=== PATIENT | male | born 1945 | race Caucasian/White ===

== ENCOUNTER 2023-04-21 13:35 | Outpatient (AMB) | payer MEDICARE, SELFPAY ==
--- NOTE | 2023-04-21 13:40 | MHC.OFFVIS ---
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 The patient is a 77-year-old gentleman with a known history of asthma who presents with worsening respiratory symptoms. He has been complaining of worsening cough. The cough is typically nonproductive. Twmc-fu-uyzmygyr severity. He is tried multiple therapies iegy-slv-ucnwzvy without any significant improvement. Does state that he does have significant allergies and nasal congestion. He does have a postnasal drip that likely contributes to his cough. Although he does not like to take a lot of medicines 4. the patient states that he had been evaluated by an reactor service operator many years ago, Dr. Angel. He did pass away he has not followed up with anyone else. In regards of the asthma has been controlled on Symbicort. Seems beneficial. 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 He feels that this helps his breathing. He did have a chest x-ray from many years ago at [facility] which I personally reviewed demonstrating slight elevation of the left hemidiaphragm. More recently he has been dealing with shoulder discomfort did undergo shoulder x-rays and I also personally reviewed those images demonstrating interval worsening of the left-sided elevated hemidiaphragm. Explained to the patient that this can result in cough and also can result in worsening dyspnea symptoms. He does have diminished breath sounds, although, no crackles or wheezing at this time. Will go ahead and treat him for an upper airway cough syndrome. Patient needs to have PFTs and a chest x-ray. If she is chest x-ray continues to be abnormal with that elevated hemidiaphragm he may need to undergo CT scan of the chest. The patient also undergo blood work. And he can try some Bentyl for his cough and also a nasal spray. [facility] Medical History (Updated 04/23/23 @ 23:59 by Rafal Hinkle MD) Cough Asthma Dyspnea Social History (Updated 04/21/23 @ 13:48 by Pamela Mullen, RMA) Patient Tobacco Use Status: Never used Tobacco Review of Systems Const Denies fever(s) Eyes Denies change in vision ENT Reports nasal congestion, Reports nasal discharge and Reports post nasal drip Card Denies chest pain and Reports dyspnea on exertion Resp Reports cough, Reports dyspnea on exertion and Reports wheezing GI Reports no additional complaints Musc Reports abnormal gait, Reports arthralgias and Reports limited range of motion Skin/Breast Denies rash Neuro Reports abnormal gait Basim/Lymph Denies lymphadenopathy Aller/Immun Reports wheezing Physical Exam Vital Signs: Last Vital Signs Pulse 89 04/21/23 13:42 Pulse Ox 94 04/21/23 13:42 Oxygen Delivery Method Room Air 04/21/23 13:42 BMI result Body Mass Index 29.2 Const General: comfortable HEENT General nose exam: Abnormal mucous membranes and turbinates present boggy Throat: Yes postnasal drainage and Yes cobblestoning Neck Neck: Yes supple Chest Chest palpation & inspection: normal inspection of the chest Resp Effort & Inspection: normal respiratory effort Auscultation: no rales, no wheezes and diminished lung sounds Cardio Heart sounds: S1 normal heart sound present and S2 normal heart sound present GI Palpation (GI): Soft to palpation Skin General skin exam: no rashes or lesions noted Extrem General: No clubbing, No cyanosis and Yes edema Assessment & Plan Assessment & Plan (1) Cough: Code(s): R05.9 - Cough, unspecified Qualifiers: Cough type: chronic Qualified Code(s): R05.3 - Chronic cough (2) Asthma: Code(s): J45.909 - Unspecified asthma, uncomplicated Qualifiers: Asthma severity: moderate Asthma persistence: persistent Asthma complication type: uncomplicated Qualified Code(s): J45.40 - Moderate persistent asthma, uncomplicated (3) Dyspnea: Code(s): R06.00 - Dyspnea, unspecified Qualifiers: Dyspnea type: dyspnea on exertion Qualified Code(s): R06.09 - Other forms of dyspnea Plan continue symbicort JAKE as needed start fluticasone nasal spray Benzonates as needed for cough Bloodwork/allergy testing PFTs CXR, if abnormal, will request a CT chest F/U 2 months Orders: Orders Rast Allergen 04/21/23 J45.909 - Unspecified asthma, uncomplicated, R05.9 - Cough, unspecified, R06.00 - Dyspnea, unspecified Complete Blood Count Auto Diff 04/21/23 J45.909 - Unspecified asthma, uncomplicated, R05.9 - Cough, unspecified, R06.00 - Dyspnea, unspecified XR chest 2V 04/21/23 J45.909 - Unspecified asthma, uncomplicated, R05.9 - Cough, unspecified, R06.00 - Dyspnea, unspecified Erythrocyte Sedimentation Rate 04/21/23 J45.909 - Unspecified asthma, uncomplicated, R05.9 - Cough, unspecified, R06.00 - Dyspnea, unspecified PFT pulmonary function test Today J45.40 - Moderate persistent asthma, uncomplicated Medications: New benzonatate 200 mg PO BID PRN 60 caps 0RF cough 30 days fluticasone propionate 50 mcg/actuation 2 sprays intranasal DAILY 15.8 mL 11RF 30 days J31.0 - Chronic rhinitis Coding Level of Care Code New Pt Level 4 (08090) Diagnoses Chronic cough R05.3 Cough type: chronic Moderate persistent asthma without complication J45.40 Asthma severity: moderate Asthma persistence: persistent Asthma complication type: uncomplicated Dyspnea on exertion R06.09 Dyspnea type: dyspnea on exertion Time Spent (min) 38
[2023-04-21 13:42] VITALS: PULSE 89; O2SAT 94; BMI 29.2
== END 2023-04-21 14:31 | disposition home or self-care (01) ==
PROVIDERS: PCP Nurse Practitioner Primary Care; Visit Provider Hospitalist
DX: R05.3 Chronic cough (principal); J45.40 Moderate persistent asthma, uncomplicated; R06.09 Other forms of dyspnea
CPT/HCPCS: 99204

== ENCOUNTER → 2023-04-21 13:35 | Outpatient (BNVA) | payer MEDICARE, SELFPAY | PROVIDERS: PCP Nurse Practitioner Primary Care; Visit Provider Hospitalist | DX: J45.40 Moderate persistent asthma, uncomplicated (principal); R05.3 Chronic cough; R06.09 Other forms of dyspnea | CPT/HCPCS: 99202 ==

== ENCOUNTER 2023-05-29 12:50 | Outpatient (REF) | payer MEDICARE, SELFPAY ==
[2023-05-29 10:14] VITALS: PULSE 90; RESP 16; O2SAT 96
--- NOTE | 2023-05-29 14:44 | PFT_ITS ---
Indication: Asthma Spirometry [FEV1 to FVC 79%; FEV1 2.67 L; FVC 3.3 L. no significant response to bronchodilators noted. Maximum voluntary ventilation 68% predicted] Lung Volumes [Total lung capacity 96% predicted] Diffusion Capacity [DLCO 88% predicted] Comparisons [None] Interpretation [No obstructive nor restrictive ventilatory defects identified. No significant response to bronchodilators noted. There is a mild decrease in the maximum voluntary ventilation secondary to likely deconditioning. Lung volumes are within normal limits. Diffusing capacity is also within normal limits. If asthma is in differential methacholine challenge may be helpful in assessing for hyperreactive airways. Clinical correlation warranted.] MTDD
== END 2023-05-29 12:51 | disposition home or self-care (01) ==
LOC: HO.RESP 12:50
PROVIDERS: PCP Nurse Practitioner Primary Care; Visit Provider Hospitalist
DX: J45.40 Moderate persistent asthma, uncomplicated (principal)
CPT/HCPCS: 94010; 94640; 94727; 94729

== ENCOUNTER → 2023-05-29 14:44 | Outpatient (BNV) | payer MEDICARE, SELFPAY | PROVIDERS: PCP Nurse Practitioner Primary Care; Visit Provider Hospitalist | DX: J45.40 Moderate persistent asthma, uncomplicated (principal) | CPT/HCPCS: 94060; 94727; 94729 ==

== ENCOUNTER 2023-06-06 14:33 | Outpatient (AMB) | payer MEDICARE, SELFPAY ==
--- NOTE | 2023-06-06 14:43 | MHC.OFFVIS ---
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 He has been complaining of worsening cough. The cough is typically nonproductive. Qyzn-rf-fpxntgmd severity. He is tried multiple therapies dsli-ppn-dpoazjf without any significant improvement. Does state that he does have significant allergies and nasal congestion. He does have a postnasal drip that likely contributes to his cough. Although he does not like to take a lot of medicines 4. the patient states that he had been evaluated by an vp of digital marketing many years ago, Dr. Angel. He did pass away he has not followed up with anyone else. In regards of the asthma has been controlled on Symbicort. Seems beneficial. 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 He feels that this helps his breathing. He did have a chest x-ray from many years ago at [facility] which I personally reviewed demonstrating slight elevation of the left hemidiaphragm. More recently he has been dealing with shoulder discomfort did undergo shoulder x-rays and I also personally reviewed those images demonstrating interval worsening of the left-sided elevated hemidiaphragm. Explained to the patient that this can result in cough and also can result in worsening dyspnea symptoms. He does have diminished breath sounds, although, no crackles or wheezing at this time. Will go ahead and treat him for an upper airway cough syndrome. Patient needs to have PFTs and a chest x-ray. If she is chest x-ray continues to be abnormal with that elevated hemidiaphragm he may need to undergo CT scan of the chest. The patient also undergo blood work. And he can try some Bentyl for his cough and also a nasal spray. 06/06/2023 the patient is here for a pulmonary follow-up visit. The patient still struggles with the cough. At times the cough is pretty significant. Last night it was hard to hard time sleeping because of the cough. He felt some chest congestion as well. The patient did undergo pulmonary function studies demonstrating no obstructive nor restrictive disease which is reassuring. In addition to that he did undergo his blood work although for some reason is not available [facility]. Will call the lab to see if we can locate it. As far as medications he continues to be on Symbicort. He did try the [employer]on aids. He was concerned about the numbing the throat. I did explain to him that is minimal. He is using the nasal sprays for the upper airway cough syndrome. The patient is also using allergy medicine. Although he may be a good candidate for Singulair this time to help him with his Underlying asthma due to allergies. The patient did have a PET scan done back over the summer 2022 this is to further evaluate his prostate. The PET scan did have a CT scan component and did demonstrate the lungs. The patient did have a good amount of collapsibility of the trachea suggesting tracheomalacia and also some degree of bronchomalacia that is likely contributing to his ongoing symptoms. I will provide him with an Acapella valve to help him with the mucus clearance and cough. The patient also may benefit from a sleep study to assess him for sleep apnea as the positive pressure also helps with the tracheomalacia issues. He will think about it at this time. As far as his respiratory therapy will maximize his respiratory therapy by switching from Symbicort to Breztri. [facility] Medical History (Updated 06/06/23 @ 22:13 by Rafal Hinkle MD) Tracheobronchomalacia Cough Asthma Dyspnea Social History (Updated 04/21/23 @ 13:48 by MIGUEL Presley) Patient Tobacco Use Status: Never used Tobacco Review of Systems Const Denies fever(s) Eyes Denies change in vision ENT Reports nasal congestion, Reports nasal discharge and Reports post nasal drip Card Denies chest pain and Reports dyspnea on exertion Resp Reports cough, Reports dyspnea on exertion and Reports wheezing GI Reports no additional complaints Musc Reports abnormal gait, Reports arthralgias and Reports limited range of motion Skin/Breast Denies rash Neuro Reports abnormal gait Basim/Lymph Denies lymphadenopathy Aller/Immun Reports wheezing Physical Exam Vital Signs: Last Vital Signs Pulse 84 06/06/23 14:44 Pulse Ox 96 06/06/23 14:44 Oxygen Delivery Method Room Air 06/06/23 14:44 BMI result Body Mass Index 29.2 Const General: comfortable HEENT General nose exam: Abnormal mucous membranes and turbinates present boggy Throat: Yes postnasal drainage and Yes cobblestoning Neck Neck: Yes supple Chest Chest palpation & inspection: normal inspection of the chest Resp Effort & Inspection: normal respiratory effort Auscultation: no rales, wheezes and diminished lung sounds Cardio Heart sounds: S1 normal heart sound present and S2 normal heart sound present GI Palpation (GI): Soft to palpation Skin General skin exam: no rashes or lesions noted Extrem General: No clubbing, No cyanosis and Yes edema Assessment & Plan Assessment & Plan (1) Cough: Code(s): R05.9 - Cough, unspecified Qualifiers: Cough type: chronic Qualified Code(s): R05.3 - Chronic cough (2) Asthma: Code(s): J45.909 - Unspecified asthma, uncomplicated Qualifiers: Asthma complication type: uncomplicated Asthma persistence: persistent Asthma severity: moderate Qualified Code(s): J45.40 - Moderate persistent asthma, uncomplicated (3) Dyspnea: Code(s): R06.00 - Dyspnea, unspecified Qualifiers: Dyspnea type: dyspnea on exertion Qualified Code(s): R06.09 - Other forms of dyspnea (4) 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 crescent ferro sign Code(s): J39.8 - Other specified diseases of upper respiratory tract Plan hold symbicort start Breztri BID Start singulair JAKE as needed continue fluticasone nasal spray Benzonates as needed for cough Bloodwork/allergy testing (awaiting) Acapella valve for CPT Consider PSG F/U 4 months Medications: New njvkjqdhvd-xpzmrtsh-onkorjejno 160-9-4.8 mcg/actuation (Breztri Aerosphere) 2 inhalations inhalation BID 30 days 10.7 grams 11RF montelukast 10 mg PO DAILY 30 days 30 tabs 11RF J45.909 - Unspecified asthma, uncomplicated Coding Level of Care Code Est Pt Level 4 (95021) Diagnoses Chronic cough R05.3 Cough type: chronic Moderate persistent asthma without complication J45.40 Asthma complication type: uncomplicated Asthma persistence: persistent Asthma severity: moderate Dyspnea on exertion R06.09 Dyspnea type: dyspnea on exertion 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
[2023-06-06 14:44] VITALS: PULSE 84; O2SAT 96; BMI 29.2
== END 2023-06-06 15:12 | disposition home or self-care (01) ==
PROVIDERS: PCP Nurse Practitioner Primary Care; Visit Provider Hospitalist
DX: R05.3 Chronic cough (principal); J45.40 Moderate persistent asthma, uncomplicated; R06.09 Other forms of dyspnea; J39.8 Other specified diseases of upper respiratory tract
CPT/HCPCS: 99214

== ENCOUNTER → 2023-06-06 14:33 | Outpatient (BNVA) | payer MEDICARE, SELFPAY | PROVIDERS: PCP Nurse Practitioner Primary Care; Visit Provider Hospitalist | DX: J45.40 Moderate persistent asthma, uncomplicated (principal); J39.8 Other specified diseases of upper respiratory tract; R05.3 Chronic cough; R06.09 Other forms of dyspnea | CPT/HCPCS: 99212 ==